=== PATIENT | female | born 1965 | race Asian ===

== ENCOUNTER → 2018-06-06 | Outpatient (CLI) | payer OTHER ==
[~2018-06-06] MED LIST: VICOT; [UNRECOGNIZED DRUG - CODE]
== END | disposition home or self-care (01) ==
LOC: RADPV 13:08
PROVIDERS: ATTEND Internal Medicine Nephrology
DX: N20.0 Calculus of kidney (principal); N29 Other disorders of kidney and ureter in diseases classified elsewhere; E05.90 Thyrotoxicosis, unspecified without thyrotoxic crisis or storm
CPT/HCPCS: 76770